=== PATIENT | female | born 1995 | race Two or more races ===

== ENCOUNTER 2023-09-22 17:41 | Emergency (ER) | payer MEDICAID ==
[~2023-09-22] VITALS: Ht 157.5 cm; Wt 45.5 kg
[2023-09-22 17:53] VITALS: BP 114/74; PULSE 101; RESP 15; TEMP 98.8; O2SAT 100
== END 2023-09-22 17:57 ==
LOC: ER 17:42
DX: Z32.01 Encounter for pregnancy test, result positive (principal); F15.10 Other stimulant abuse, uncomplicated; F17.200 Nicotine dependence, unspecified, uncomplicated; Z79.899 Other long term (current) drug therapy
CPT/HCPCS: 99283